=== PATIENT | male | born 1995 | race Hispanic/Latino ===

== ENCOUNTER 2018-12-27 19:10 | Emergency (ER) | payer OTHER ==
--- OUTSIDE RECORDS SUMMARY | 2018-12-27 19:12 | XMS REPORT ---
:1995 Author Organization eClinicalWorks Care Team Providers Name Role Phone Zachary [facility] Provider Role Unavailable Allergies, Adverse Reactions, Alerts Substance Reaction Event Type N.K.D.A. Info Not Available Non Drug Allergy Problems Problem Type Condition Code Onset Dates Condition Status Assessment Fatigue, unspecified type R53.83 Active Assessment Body mass index (BMI) of 40.1-44.9 Z68.41 Active in adult Assessment Mixed hyperlipidemia E78.2 Active Assessment Onychomycosis B35.1 Active Assessment Seasonal allergic rhinitis, J30.2 Active unspecified trigger Assessment Elevated BP without diagnosis of R03.0 Active hypertension Problem Otalgia of left ear H92.02 Active Problem Mixed hyperlipidemia E78.2 Active Problem Onychomycosis B35.1 Active Problem Body mass index (BMI) of 40.1-44.9 Z68.41 Active in adult Problem Elevated BP without diagnosis of R03.0 Active hypertension Problem Seasonal allergic rhinitis, J30.2 Active unspecified trigger Medications Medication Code Code Instructions Start End Status Dosage System Date Date Phentermine HCl [facility] 07935374009 37.5 MG Orally Active 1 capsule Once a day Zyrtec Allergy ND 71913608774 10 MG Orally Active 1 tablet Once a day Claritin ND 31645886083 10 MG Orally Active 1 tablet Once a day Results No Known Results Summary Purpose eClinicalWorks Submission
--- OUTSIDE RECORDS SUMMARY | 2018-12-27 19:13 | XMS REPORT ---
:1995 Author Organization eClinicalWorks Care Team Providers Name Role Phone Tello Sharma Provider Role Unavailable Allergies No Known Allergies Problems Problem Type Condition Code Onset Dates Condition Status Assessment Fatigue, unspecified type R53.83 Active Assessment Body mass index (BMI) of 40.1-44.9 Z68.41 Active in adult Assessment Mixed hyperlipidemia E78.2 Active Assessment Seasonal allergic rhinitis, J30.2 Active [...] Status Dosage System Date Date Phentermine HCl [facility] 16111127352 37.5 MG Orally Active 1 capsule Once a day Zyrtec Allergy [facility] 46201800398 10 MG Orally Active 1 tablet Once a day Claritin [facility] 14433597836 10 MG Orally Active 1 tablet Once a day Results No Known Results Summary Purpose eClinicalWorks Submission
--- OUTSIDE RECORDS SUMMARY | 2018-12-27 19:13 | XMS REPORT ---
:1995 Author Organization eClinicalWorks Care Team Providers Name Role Phone Tello Sharma Provider Role Unavailable Allergies No Known Allergies Problems Problem Type Condition Code Onset Dates Condition Status Problem Body mass index (BMI) of 40.1-44.9 Z68.41 Active in adult Problem Chronic fatigue R53.82 Active Problem Elevated BP without diagnosis of R03.0 Active hypertension Problem Fatigue, unspecified type R53.83 Active Problem Otalgia of left ear H92.02 Active Problem Mixed hyperlipidemia E78.2 Active Problem Seasonal allergic rhinitis, J30.2 Active unspecified trigger Problem Onychomycosis B35.1 Active Medications No Known Medications Results No Known Results Summary Purpose eClinicalWorks Submission
--- OUTSIDE RECORDS SUMMARY | 2018-12-27 19:13 | XMS REPORT ---
:1995 Author Organization eClinicalWorks Care Team Providers Name Role Phone Tello Sharma Provider Role Unavailable Allergies No Known Allergies Problems Problem Type Condition Code Onset Dates Condition Status Assessment High risk heterosexual behavior Z72.51 Active Problem Body mass index (BMI) of 40.1-44.9 Z68.41 Active in adult Assessment History of chlamydia Z86.19 Active Problem Chronic fatigue R53.82 Active Problem Elevated BP without diagnosis of R03.0 Active hypertension Problem Fatigue, unspecified type R53.83 Active Problem Otalgia of left ear H92.02 Active Problem Mixed hyperlipidemia E78.2 Active Problem Seasonal allergic rhinitis, J30.2 Active unspecified trigger Problem Onychomycosis B35.1 Active Medications No Known Medications Results No Known Results Summary Purpose eClinicalWorks Submission
--- OUTSIDE RECORDS SUMMARY | 2018-12-27 19:13 | XMS REPORT ---
:1995 Author Organization eClinicalWorks Care Team Providers Name Role Phone Servadno Sharmah Provider Role Unavailable Allergies, Adverse Reactions, Alerts Substance Reaction Event Type N.K.D.A. Info Not Available Non Drug Allergy Problems Problem Type Condition Code Onset Dates Condition Status Problem Mixed hyperlipidemia E78.2 Active Problem Body mass index (BMI) of 40.1-44.9 Z68.41 Active in adult Problem Fatigue, unspecified type R53.83 Active Problem Chronic fatigue R53.82 Active Problem Adult BMI 36.0-36.9 kg/sq m Z68.36 Active Problem Onychomycosis B35.1 Active Problem Otalgia of left ear H92.02 Active Problem Elevated BP without diagnosis of R03.0 Active hypertension Problem Seasonal allergic rhinitis, J30.2 Active unspecified trigger Assessment Encounter for dietary counseling and Z71.3 Active surveillance Assessment Vitamin B12 deficiency E53.8 Active Assessment Fatigue, unspecified type R53.83 Active Assessment Dark stools R19.5 Active Assessment Adult BMI 36.0-36.9 kg/sq m Z68.36 Active Medications Medication Code Code Instructions Start End Date Status Dosage System Date Phentermine HCl [facility] 02668660937 37.5 MG Orally Dec 22December Active 1 tablet Once a day 2018 Zyrtec Allergy [facility] 24294148371 10 MG Orally Active 1 tablet Once a day Claritin [facility] 22866358777 10 MG Orally Active 1 tablet Once a day Results No Known Results Summary Purpose eClinicalWorks Submission
--- NOTE | 2018-12-27 20:25 | EDPHYS ---
Physician Documentation [facility] Name: Cameron Garcia Jr Age: 23 yrs Sex: Male : 1995 Arrival Date: 12/27/2018 Time: 19:15 Bed 13 Private MD: Zachary [facility] ED Physician Enmanuel Ponce HPI: 12/27 20:18 This 23 yrs old Male presents to ER via Ambulatory with complaints of Fever. nellie 20:18 The patient reports fever, that was measured at 104 degrees Fahrenheit. Onset: The nellie symptoms/episode began/occurred 1 day(s) ago. Historical: - Allergies: 19:29 No Known Allergies; bb - Home Meds: 19:29 None [Active]; bb - PMHx: 19:29 None; bb - PSHx: 19:29 Appendectomy; bb - Immunization history:: Adult Immunizations up to date, Flu vaccine is not up to date. - Social history:: Smoking status: Patient/guardian denies using tobacco, Patient uses alcohol, only on a social basis. Patient/guardian denies using street drugs. - Ebola Screening: : No symptoms or risks identified at this time. - Family history:: not pertinent. ROS: 20:18 Constitutional: Negative for fever, chills, and weight loss, Eyes: Negative for injury, nellie pain, redness, and discharge, Neck: Negative for injury, pain, and swelling, Cardiovascular: Negative for chest pain, palpitations, and edema, Respiratory: Negative for shortness of breath, cough, wheezing, and pleuritic chest pain, Abdomen/GI: Negative for abdominal pain, nausea, vomiting, diarrhea, and constipation, Back: Negative for injury and pain, : Negative for injury, bleeding, discharge, and swelling, MS/Extremity: Negative for injury and deformity, Skin: Negative for injury, rash, and discoloration, Neuro: Negative for headache, weakness, numbness, tingling, and seizure, Psych: Negative for depression, anxiety, suicide ideation, homicidal ideation, and hallucinations, Allergy/Immunology: Negative for hives, rash, and allergies, Endocrine: Negative for neck swelling, polydipsia, polyuria, polyphagia, and marked weight changes, Hematologic/Lymphatic: Negative for swollen nodes, abnormal bleeding, and unusual bruising. 20:18 ENT: Positive for dental pain, difficulty handling secretions, difficulty swallowing, drainage from ear(s), ear pain, foreign body sensation, Gum pain hearing loss, hoarseness, injury or acute deformity, rhinorrhea, sinus congestion, sore throat. Exam: 20:18 Head/Face: Normocephalic, atraumatic. Eyes: Pupils equal round and reactive to light, nellie extra-ocular motions intact. Lids and lashes normal. Conjunctiva and sclera are non-icteric and not injected. Cornea within normal limits. Periorbital areas with no swelling, redness, or edema. Neck: Trachea midline, no thyromegaly or masses palpated, and no cervical lymphadenopathy. Supple, full range of motion without nuchal rigidity, or vertebral point tenderness. No Meningismus. Chest/axilla: Normal chest wall appearance and motion. Nontender with no deformity. No lesions are appreciated. Cardiovascular: Regular rate and rhythm with a normal S1 and S2. No gallops, murmurs, or rubs. Normal PMI, no JVD. No pulse deficits. Respiratory: Lungs have equal breath sounds bilaterally, clear to auscultation and percussion. No rales, rhonchi or wheezes noted. No increased work of breathing, no retractions or nasal flaring. Abdomen/GI: Soft, non-tender, with normal bowel sounds. No distension or tympany. No guarding or rebound. No evidence of tenderness throughout. Back: No spinal tenderness. No costovertebral tenderness. Full range of motion. Male : Normal genitalia with no discharge or lesions. Skin: Warm, dry with normal turgor. Normal color with no rashes, no lesions, and no evidence of cellulitis. MS/ Extremity: Pulses equal, no cyanosis. Neurovascular intact. Full, normal range of motion. Neuro: Awake and alert, GCS 15, oriented to person, place, time, and situation. Cranial nerves II-XII grossly intact. Motor strength 5/5 in all extremities. Sensory grossly intact. Cerebellar exam normal. Normal gait. Psych: Awake, alert, with orientation to person, place and time. Behavior, mood, and affect are within normal limits. 20:18 Constitutional: The patient appears febrile. 20:18 ENT: Posterior pharynx: Airway: normal, no evidence of obstruction, Tonsils: bilaterally enlarged, with erythema, with exudate, Uvula: midline, edematous, erythema, swelling, that is mild, erythema, that is moderate, exudate, that is moderate. Vital Signs: 19:29 BP 135 / 79; Pulse 100; Resp 18 S; Temp 99.3(O); Pulse Ox 97% on R/A; Weight 113.4 kg bb (R); Height 5 ft. 10 in. (177.80 cm) (R); Pain 5/10; 20:45 BP 129 / 77; Pulse 94; Resp 19 S; Temp 98.9(O); Pulse Ox 97% on R/A; cc3 19:29 Body Mass Index 35.87 (113.40 kg, 177.80 cm) bb MDM: 19:34 Patient medically screened. [facility] 12/27 20:18 Order name: PO challenge; Complete Time: 20:18 [facility] Administered Medications: 20:30 Drug: Augmentin 875 mg Route: PO; cc3 20:45 Follow up: Response: No adverse reaction cc3 20:30 Drug: Motrin 800 mg Route: PO; cc3 20:45 Follow up: Response: No adverse reaction; Temperature is decreased cc3 20:32 Drug: Decadron 10 mg Route: IM; Site: right gluteus; cc3 20:45 Follow up: Response: No adverse reaction cc3 Disposition: 12/27/18 20:25 Discharged to Home. Impression: Fever, unspecified, Acute tonsillitis. - Condition is Stable. - Discharge Instructions: Fever, Adult, Tonsillitis, Tonsillitis, [id number], Fever, Adult, [id number]. - Prescriptions for Augmentin 875- 125 mg Oral Tablet - take 1 tablet by ORAL route every 12 hours for 10 days; 20 tablet. - Medication Reconciliation Form, Thank You Letter, Antibiotic Education, Prescription Opioid Use form. - Follow up: Tello Sharma DO; When: 2 - 3 days; Reason: Recheck today's complaints, Continuance of care, Re-evaluation by your physician. - Problem is new. - Symptoms have improved. Signatures: Enmanuel Ponce MD MD cha Ballard, Brenda, RN RN bb Shawna Savage cc3 Corrections: (The following items were deleted from the chart) 20:44 20:25 12/27/2018 20:25 Discharged to Home. Impression: Fever, unspecified; Acute cc3 tonsillitis. Condition is Stable. Forms are Medication Reconciliation Form, Thank You Letter, Antibiotic Education, Prescription Opioid Use. Follow up: Tello Sharma; When: 2 - 3 days; Reason: Recheck today's complaints, Continuance of care, Re-evaluation by your physician. Problem is new. Symptoms have improved. nellie
--- NOTE | 2018-12-27 20:25 | ER ---
Nurse's Notes [facility] Name: Cameron Garcia Jr Age: 23 yrs Sex: Male : 1995 Arrival Date: 12/27/2018 Time: 19:15 Bed 13 Private MD: Tello Sharma Diagnosis: Fever, unspecified;Acute tonsillitis Presentation: 12/27 19:27 Presenting complaint: Patient states: he went to Urgent Care this morning was diagnosed bb with strep and given a shot of Rocephin and given an RX for Augmentin but continued to have temp of 104 for several hours and could not get it to break he did take tylenol about an hour and a half ago temp now is 99.3. Transition of care: patient was not received from another setting of care. Onset of symptoms was November 27, 2018. Risk Assessment: Do you want to hurt yourself or someone else? Patient reports no desire to harm self or others. Initial Sepsis Screen: Does the patient meet any 2 criteria? No. Patient's initial sepsis screen is negative. Does the patient have a suspected source of infection? No. Patient's initial sepsis screen is negative. Care prior to arrival: None. 19:27 Method Of Arrival: Ambulatory bb 19:27 Acuity: MARY 5 bb Triage Assessment: 19:40 General: Appears in no apparent distress. comfortable, Behavior is calm, cooperative, cc3 appropriate for age. Pain: Denies pain. EENT: No signs and/or symptoms were reported regarding the EENT system. Neuro: Level of Consciousness is awake, alert, obeys commands, Oriented to person, place, time, situation, Appropriate for age. Cardiovascular: Patient's skin is warm and dry. Respiratory: Airway is patent Respiratory effort is even, unlabored, Respiratory pattern is regular, symmetrical. GI: Abdomen is round non-distended. : No signs and/or symptoms were reported regarding the genitourinary system. Derm: No signs and/or symptoms reported regarding the dermatologic system. Musculoskeletal: Circulation, motion, and sensation intact. Range of motion: intact in all extremities. Historical: - Allergies: 19:29 No Known Allergies; bb - Home Meds: 19:29 None [Active]; bb - PMHx: 19:29 None; bb - PSHx: 19:29 Appendectomy; bb - Immunization history:: Adult Immunizations up to date, Flu vaccine is not up to date. - Social history:: Smoking status: Patient/guardian denies using tobacco, Patient uses alcohol, only on a social basis. Patient/guardian denies using street drugs. - Ebola Screening: : No symptoms or risks identified at this time. - Family history:: not pertinent. Screenin:38 Abuse screen: Denies threats or abuse. Denies injuries from another. Nutritional cc3 screening: No deficits noted. Tuberculosis screening: No symptoms or risk factors identified. Fall Risk Ambulatory Aid- None/Bed Rest/Nurse Assist (0 pts). Gait- Normal/Bed Rest/Wheelchair (0 pts) Mental Status- Oriented to own ability (0 pts). Assessment: 19:40 General: see triage assessment. cc3 20:45 Reassessment: Patient appears in no apparent distress at this time. Patient and/or cc3 family updated on plan of care and expected duration. Pain level reassessed. Patient is alert, oriented x 3, equal unlabored respirations, skin warm/dry/pink. Dr. Ponce discharged the patient home with prescription given. No IV cannula in situ. Patient left ER vitally stable and ambulatory. Vital Signs: 19:29 BP 135 / 79; Pulse 100; Resp 18 S; Temp 99.3(O); Pulse Ox 97% on R/A; Weight 113.4 kg bb (R); Height 5 ft. 10 in. (177.80 cm) (R); Pain 5/10; 20:45 BP 129 / 77; Pulse 94; Resp 19 S; Temp 98.9(O); Pulse Ox 97% on R/A; cc3 19:29 Body Mass Index 35.87 (113.40 kg, 177.80 cm) ED Course: 19:15 Patient arrived in ED. es 19:15 Tello Sharma DO is Private Physician. es 19:29 Triage completed. bb 19:29 Arm band placed on Patient placed in an exam room, on a stretcher, on pulse oximetry. bb 19:34 Enmanuel Ponce MD is Attending Physician. [facility] 19:36 Patient has correct armband on for positive identification. Bed in low position. Call cc3 light in reach. Side rails up X 1. Pulse ox on. NIBP on. 19:37 Shawna Savage is Primary Nurse. cc3 20:24 Tello Sharma DO is Referral Physician. [facility] 20:45 No provider procedures requiring assistance completed. Patient did not have IV access cc3 during this emergency room visit. Administered Medications: 20:30 Drug: Augmentin 875 mg Route: PO; cc3 20:45 Follow up: Response: No adverse reaction cc3 20:30 Drug: Motrin 800 mg Route: PO; cc3 20:45 Follow up: Response: No adverse reaction; Temperature is decreased cc3 20:32 Drug: Decadron 10 mg Route: IM; Site: right gluteus; cc3 20:45 Follow up: Response: No adverse reaction cc3 Outcome: 20:25 Discharge ordered by . nellie 20:44 Patient left the ED. cc3 20:45 Discharged to home ambulatory. cc3 20:45 Condition: stable 20:45 Discharge instructions given to patient, Instructed on discharge instructions, follow up and referral plans. medication usage, Demonstrated understanding of instructions, follow-up care, medications, Prescriptions given X 1. Signatures: Enmanuel Ponce MD MD cha Salyer, Edna es Ballard, Brenda, RN RN Shawna Corey cc3
[2018-12-27] MEDS ORDERED: IBUPROFEN 400 MG TAB ONE (20:39)
[2018-12-27] MEDS ORDERED: DEXAMETHASONE 4 MG/ML VIAL ONE (20:40)
[2018-12-27] MEDS ORDERED: AMOX/K CLAV 875 MG TAB ONE (20:40)
== END 2018-12-27 20:44 | disposition home or self-care (01) ==
LOC: ER 19:10
DX: R50.9 Fever, unspecified (principal); J03.90 Acute tonsillitis, unspecified
CPT/HCPCS: 96372; 99283